=== PATIENT | male | born 1970 | race Caucasian/White ===

== ENCOUNTER 2016-08-29 17:00 | Emergency (ER) | payer BC, OTHER ==
[2016-08-29 17:44] VITALS: BP 133/81
--- NOTE | 2016-08-29 19:26 | UC ---
Throat Pain/Nasal Kris HPI - HPI Summary HPI Summary: 46 male presents with complaints of loss of voice and throat discomfort that began yesterday morning and worsened throughout the day into today. Patient states he has also been suffering from nasal congestion. Denies headache, ear pain and fever/chills. States he does have a mild intermittent cough. Denies nausea and vomiting. No other complaints. No PMHx. - History of Current Complaint Chief Complaint: UCGeneralIllness Stated Complaint: RASPY VOICE/ST Time Seen by Provider: 08/29/16 19:11 Hx Obtained From: Patient Onset/Duration: Sudden Onset, Lasting Days - 1 Severity: Mild Pain Intensity: 2 Pain Scale Used: 0-10 Numeric Cough: Nonproductive - intermittent Associated Signs & Symptoms: Positive: Dysphagia, Hoarseness, Nasal Discharge - Allergies/Home Medications Allergies/Adverse Reactions: Allergies Allergy/AdvReac Type Severity Reaction Status Date / Time No Known Allergies Allergy Verified 08/29/16 17:35 Home Medications: Home Medications Losartan TAB* [Cozaar TAB*] 25 mg PO DAILY 08/29/16 [History Confirmed 08/29/16] amLODIPine TAB* [Norvasc 5 mg TAB*] 5 mg PO DAILY 08/29/16 [History Confirmed ] PMH/Surg Hx/FS Hx/Imm Hx - Additional Past Medical History Additional PMH: Denies DM, HTN and asthma. No known PMHx. - Surgical History Surgical History: None - Family History Known Family History: Positive: None - Social History Alcohol Use: Occasionally Substance Use Type: None Smoking Status (MU): Never Smoked Tobacco Review of Systems Constitutional: Negative Skin: Negative ENT: Sore Throat, Nasal Discharge, Other - loss of voice Respiratory: Negative Cardiovascular: Negative Gastrointestinal: Negative Neurological: Negative All Other Systems Reviewed And Are Negative: Yes Physical Exam Triage Information Reviewed: Yes Appearance: Well-Appearing, No Pain Distress, Well-Nourished Vital Signs: Initial Vital Signs Temp 98.4 F 08/29/16 17:38 Pulse 74 08/29/16 17:38 Resp 16 08/29/16 17:38 BP 133/81 08/29/16 17:38 Pulse Ox 97 08/29/16 17:38 Vital Signs Reviewed: Yes Eyes: Positive: Conjunctiva Clear ENT: Positive: Normal ENT inspection, Hearing grossly normal, Pharynx normal - post nasal drip noted, Nasal congestion, TMs normal, Muffled/hoarse voice - dysphonia, raspy voice. Negative: Pharyngeal erythema, Nasal drainage, Tonsillar swelling, Tonsillar exudate, Trismus Neck: Positive: Supple, Nontender, No Lymphadenopathy Respiratory: Positive: Chest non-tender, Lungs clear, Normal breath sounds, No respiratory distress, No accessory muscle use. Negative: Respiratory distress, Decreased breath sounds, Crackles, Rhonchi, Stridor, Wheezing Cardiovascular Exam: Normal Cardiovascular: Positive: RRR, No Murmur, Pulses Normal Musculoskeletal: Positive: Strength Intact, ROM Intact Neurological: Positive: Alert Skin Exam: Normal Throat Pain/Nasal Course/Dx - Course Course Of Treatment: flonase and oral decongestants for congestion (mucinex/ claritin-d). also educated on saline rinses. fluids, rest voice and NSAIDs. avoid spicy and citric foods. follow up pcp. aware of worsening signs and symptoms. - Differential Dx/Diagnosis Differential Diagnosis/HQI/PQRI: Laryngitis, Mononucleosis, Pharyngitis, Sinusitis, Tonsillitis, Other Provider Diagnoses: laryngitis Discharge - Discharge Plan Condition: Stable Disposition: HOME Patient Education Materials: Laryngitis (ED) Referrals: No Primary Care Phys,NOPCP [Primary Care Provider] - [facility] [place] [facility] [Outside] Additional Instructions: Take Ibuprofen to help with inflammation and discomfort. Drink plenty of fluids. Rest your voice. Flonase for nasal congestion as directed and OTC decongestants as desired ( Mucinex or Claritin D, etc) If anything worsens or does not get better, OR new symptoms develop please return or seek medical attention promptly. Follow up with PCP.
== END 2016-08-29 19:30 | disposition home or self-care (01) ==
LOC: UCCORT 17:00
DX: J04.0 Acute laryngitis (principal)
CPT/HCPCS: 99201; G0463